=== PATIENT | male | born 2000 | race Hispanic/Latino ===

== ENCOUNTER 2020-11-17 17:37 | Emergency (ER) | payer SELFPAY ==
[~2020-11-17] VITALS: Ht 175.3 cm; Wt 150.0 kg
[2020-11-17 19:49] VITALS: BP 124/65
== END 2020-11-17 20:01 | disposition home or self-care (01) | DRG 563 ==
LOC: ED 17:37
PROC: 0QSDXZZ Reposition Right Patella, External Approach (ICD-10-PCS; principal; 2020-11-17)
DX: S83.014A Lateral dislocation of right patella, initial encounter (principal); W01.0XXA Fall on same level from slipping, tripping and stumbling without subsequent striking against object, initial encounter; Y93.66 Activity, soccer; Y92.009 Unspecified place in unspecified non-institutional (private) residence as the place of occurrence of the external cause
CPT/HCPCS: L1830